=== PATIENT | female | born 1980 | race Native Hawaiian/Other Pacific Islander ===

== ENCOUNTER 2018-10-26 15:13 | Observation (INO) | payer MEDICAID ==
[2018-10-26] MEDS ORDERED: PREN-96 PO (16:32)
== END 2018-10-26 16:55 | disposition home or self-care (01) | DRG 563 ==
LOC: LDRP 15:13
PROVIDERS: ADMIT Obstetrics & Gynecology; ATTEND Obstetrics & Gynecology
DX: O60.03 Preterm labor without delivery, third trimester (principal); O09.523 Supervision of elderly multigravida, third trimester; O48.0 Post-term pregnancy; O62.9 Abnormality of forces of labor, unspecified; Z3A.40 40 weeks gestation of pregnancy
CPT/HCPCS: 59025; 76818; 81002; G0378

== ENCOUNTER 2018-10-26 22:29 | Inpatient (IN) | payer MEDICAID ==
[~2018-10-26] VITALS: Ht 162.6 cm; Wt 76.2 kg
[2018-10-26] MEDS: LACTATED RINGER'S 1,000 ML IV SCH (06:53)
[~2018-10-26 22:29] MED LIST: PREN-96 PO
[2018-10-26] MEDS ORDERED: LACT. RINGERS/OXYTOCIN 20UNITS 1,000 ML IV SCH ×2 (22:34→23:10)
[2018-10-26] MEDS ORDERED: DERMOPLAST 60ML BOTTLE TOP PRN (22:45)
[2018-10-26] MEDS ORDERED: LIDOCAINE 2%HCL (LOCAL ANESTH.) INJ 20ML MDV ID ONE (22:45)
[2018-10-26] MEDS ORDERED: PHISODERM TOP SOLN 240ML BTL TOP PRN (22:45)
[2018-10-26] MEDS ORDERED: METHYLERGONOVINE MALEATE 0.2 MG/ML AMP IM PRN (22:45)
[2018-10-26] MEDS ORDERED: WITCH HAZEL-GLYCERIN PAD TOP PRN (22:45)
[2018-10-26 23:05] LABS: Urine WBC None Seen /hpf (0 - 5)
[2018-10-26 23:09] LABS: Basophils # (auto) 0 uL; Basophils % (auto) 0.4 % (0.0-2.0); Eosinophils # (auto) 0 uL; Eosinophils % (auto) 0.1 % (0.0-7.0); Hematocrit 37.2 % (36.0-46.0); Lymphocytes # (auto) 1.9 uL; Lymphocytes % (auto) 19.2 % (10.0-50.0); Mean Corpuscular Hemoglobin 32.1 pg (28.0-32.0); Mean Corpuscular Hgb Conc. 34.9 g/dL (32.0-36.0); Mean Corpuscular Volume 92.2 fL (80.0-100.0); Monocytes # (auto) 0.6 uL; Monocytes % (auto) 5.9 % (0.0-12.0); Neutrophils # (auto) 7.2 uL; Neutrophils % (auto) 74.4 % (37.0-80.0); Nucleated Red Blood Cells % 0.1 %; Platelet Count (auto) 144 10^3/uL (140-450); Red Blood Cells 4.03 10^6/uL (4.0-5.20); Red Cell Distribution Width 13.7 % (11.8-14.3); White Blood Cell 9.6 10^3/uL (4.4-10.8)
[2018-10-26 23:17] LABS: Urine Bacteria NONE SEEN /hpf (None Seen); Urine Blood Negative /uL (Negative); Urine Specific Gravity 1.011 (1.001-1.035)
[2018-10-26 23:26] LABS: INR 0.86 (0.9-1.15); Partial Thromboplastin Time 27.2 sec (23.78-33.04); Prothrombin Time 9.3 sec (9.27-12.13)
[2018-10-26 23:28] LABS: Albumin 2.9 g/dL (3.4-5.0); BUN/Creatinine Ratio 18.8; Calcium 8.6 mg/dL (8.5-10.1); Potassium 3.6 mmol/L (3.5-5.1); Uric Acid 5.1 mg/dL (2.6-6.0)
[2018-10-26 23:29] LABS: Alcohol, Urine < 3.0 mg/dL (0-5); Amphetamine Screen, Urine NEGATIVE (NEGATIVE); Barbiturate Scree,Urine NEGATIVE (NEGATIVE); Benzodiazephine Screen, Urine NEGATIVE (NEGATIVE); Cannabinoid Screen, Urine NEGATIVE (NEGATIVE); Cocaine Screen, Urine NEGATIVE (NEGATIVE); Opiate Scree,Urine NEGATIVE (NEGATIVE); Phencyclidine Screen, Urine NEGATIVE (NEGATIVE)
[2018-10-26 23:30] LABS: Bilirubin, Total 0.4 mg/dL (0.2-1.0); Total Protein 6.8 g/dL (6.4-8.2)
[2018-10-27] MEDS ORDERED: TERBUTALINE SULFATE 1 MG/ML 1ML VIAL SC ONE (04:30)
[2018-10-27] MEDS ORDERED: LACT. RINGERS/OXYTOCIN 20UNITS 1,000 ML IV SCH (04:30)
[2018-10-27] MEDS ORDERED: LACTATED RINGER'S 1,000 ML IV ONE (05:45)
[2018-10-27] MEDS ORDERED: fentaNYL W ROPIVACAINE 150 ML EPI SCH (05:45)
[2018-10-27] MEDS ORDERED: NALOXONE HCL 0.4 MG/ML VIAL IV ONE (05:45)
[2018-10-27] MEDS ORDERED: ePHEDrine SULFATE 50 MG/ML AMP IV ONE ×2 (05:45→08:00)
[2018-10-27] MEDS: LACTATED RINGER'S 1,000 ML IV SCH (06:34)
[2018-10-27] MEDS ORDERED: LACTATED RINGER'S 2,000 ML IV ONE (06:45)
[2018-10-27] MEDS ORDERED: ePHEDrine SULFATE 50 MG/ML AMP ONE (07:45)
--- NOTE | 2018-10-27 11:30 | NUR ---
OF VIABLE MALE .
[2018-10-27] MEDS ORDERED: LACT. RINGERS/OXYTOCIN 20UNITS 500 ML IV ONE (12:11)
[2018-10-27] MEDS ORDERED: ACETAMINOPHEN 325 MG TAB PO PRN (12:15)
--- NOTE | 2018-10-27 12:42 | NUR ---
REPORT GIVEN TO Leonardo ZAYAS RN
[2018-10-27] MEDS: IBUPROFEN 600 MG TAB PO PRN ×4 (13:11→23:13)
--- NOTE | 2018-10-27 13:20 | NUR ---
Ambulation: Patient OOB with standby assistance by RN. Patient ambulated to bathroom with steady gait. Patient able to void 1000mL without difficulty. [facility] teaching provided with returned demonstration by patient. Clean gown provided and bed linen changed. Patient ambulated back to bed with steady gait and no distress noted.
[2018-10-27 15:00] VITALS: BP 126/74
--- NOTE | 2018-10-27 15:00 | NUR ---
Teaching: Reviewed information in [facility] booklet with patient. Discussed benefits of and risks associated with not . Discussed different positions, proper latch, feeding cues, and baby-led . Provided information of medication side effects related to . All questions and concerns addressed at this time. Patient verbalized understanding of information.
[2018-10-27 19:30] VITALS: BP 114/78
[2018-10-27 23:03] VITALS: BP 106/54
[2018-10-27] MEDS ORDERED: HYDROcodone-ACET 10/325MG TAB ONE (23:58)
[2018-10-28 02:57] VITALS: BP 124/58
[2018-10-28] MEDS: IBUPROFEN 600 MG TAB PO PRN ×2 (02:58→07:41)
[2018-10-28] MEDS: HYDROcodone-ACET 10/325MG TAB PO PRN ×2 (04:26→12:25)
[2018-10-28 06:09] LABS: RPR Non Reactive (Non Reactive)
[2018-10-28 07:30] VITALS: BP 107/63
--- NOTE | 2018-10-28 08:35 | NUR ---
Discharge: Discharge instructions given as ordered. Pt encouraged to follow up with [facility] [employer] as instructed. All questions and concerns addressed. Patient verbalized understanding. Medication reconciliation completed and copy given to patient. Patient encouraged to prepare to depart unit.
[2018-10-28 11:20] VITALS: BP 117/62
--- NOTE | 2018-10-28 12:30 | NUR ---
IV removal IV DC'd with sterile technique, catheter fully intact. Pressure dressing applied to site. Patient tolerated procedure well. Discharged with aftercare instructions
[2018-10-28 15:15] VITALS: BP 104/55
--- NOTE | 2018-10-28 15:25 | NUR ---
Discharge: Patient taken to vehicle via ambulation refusing wheelchair with all personal belongings, accompanied by staff and family member. No distress noted at time of departure, no adverse changes in status since initial assessment.
== END 2018-10-28 15:25 | disposition home or self-care (01) | DRG 560 ==
LOC: LDRP 22:29 → OBSVTOIN 10-27 22:29
PROVIDERS: ADMIT Obstetrics & Gynecology; ATTEND Obstetrics & Gynecology
PROC: 10E0XZZ Delivery of Products of Conception, External Approach (ICD-10-PCS; principal; 2018-10-27)
PROC: 3E0R3BZ Introduction of Anesthetic Agent into Spinal Canal, Percutaneous Approach (ICD-10-PCS; 2018-10-27)
PROC: 00HU33Z Insertion of Infusion Device into Spinal Canal, Percutaneous Approach (ICD-10-PCS; 2018-10-27)
PROC: 0UQMXZZ Repair Vulva, External Approach (ICD-10-PCS; 2018-10-27)
PROC: 0HQ9XZZ Repair Perineum Skin, External Approach (ICD-10-PCS; 2018-10-27)
DX: O70.0 First degree perineal laceration during delivery (principal); O71.82 Other specified trauma to perineum and vulva; Z37.0 Single live birth; Z3A.40 40 weeks gestation of pregnancy
CPT/HCPCS: 36415; 51702; 59025; 59409; 62282; 80053; 80307; 81001; 84550; 85025; 85610; 85730; 86592; 86850; 86900; 86901; 96361; 96365; 96366; A6257; G0378; J2590; J3010

== ENCOUNTER 2022-03-10 11:43 | Emergency (ER) | payer MEDICAID ==
[~2022-03-10] VITALS: Ht 162.6 cm; Wt 59.4 kg
[2022-03-10 12:00] VITALS: BP 125/44
[2022-03-10] MEDS ORDERED: KETOROLAC TROMETH 60MG/2ML VIAL IM ONE (15:45)
[2022-03-10] MEDS ORDERED: ACE3T PO (15:56)
== END 2022-03-10 16:03 | disposition home or self-care (01) ==
LOC: ER 11:43
DX: G44.209 Tension-type headache, unspecified, not intractable (principal)
CPT/HCPCS: 70450; 96372; 99284; J1885